=== PATIENT | male | born 1955 | race Caucasian/White ===

== ENCOUNTER 2017-04-30 18:50 | Inpatient (IN) | payer OTHER ==
--- NOTE | ~2017-04-30 | OP ---
Record Of Operation [facility] [address] [place]. [address] NAME: AXEL SHARP : 55 STATUS : DIS IN PAT#: [id number] AGE: 61 ADM/REG DATE : 04/30/17 MR#: [id number] REPORT SERV DATE: 05/05/17 DICTATED BY: BRYCE GARCIA II DATE: 05/05/17 REPORT STATUS : Draft TRANSCRIBED BY: MODShira DATE: 05/05/17 DATE OF PROCEDURE: 04/30/2017 CONCRETE CURER: Gregory. PREOPERATIVE DIAGNOSIS: Symptomatic left carotid stenosis. POSTOPERATIVE DIAGNOSIS: Symptomatic left carotid stenosis. PROCEDURES: 1. Left carotid endarterectomy with bovine patch angioplasty. 2. Completion intraoperative duplex ultrasound. ANESTHESIA: General. IV FLUIDS: 900 mL. ESTIMATED BLOOD LOSS: 100 mL. SPECIMENS: Carotid plaque. DRAINS: 15-Faroese Homero. DETAILS OF PROCEDURE: The patient was taken to the operating room, placed in supine position on the table. General anesthesia was achieved. Protective padding and a shoulder roll was placed. We then prepped and draped in a sterile fashion. I made an incision along the anterior border of the sternocleidomastoid. The platysma was divided with electrocautery. The facial vein was ligated with 2-0 silk. The carotid sheath was opened and vessel loops were placed around the common, internal, and external carotid arteries. Systemic heparin was given. The hypoglossal and vagus nerves were identified and preserved throughout the case. Arteriotomy was then made in the common carotid and extended through the bifurcation onto the internal carotid. A shunt was placed without difficulty. There was severe hemorrhagic plaque present within the internal carotid. Stenosis was more than 80%. Using a [place] elevator, we removed all visible plaque down to a smooth endarterectomy surface. 7- 0 tacking sutures were placed distally. We then closed the vessel using a bovine pericardial patch and a running 6-0 Prolene. Prior to complete closure, we flushed and removed the shunt. Intraoperative ultrasound demonstrates a widely patent endarterectomy site. There was no thrombus, filling defect, or debris noted. There was a normal carotid waveform noted. We then thoroughly irrigated, ensured hemostasis, placed a 15-Faroese Homero drain and then closed with an interrupted 3-0 Vicryl in the platysma. We closed the skin with Monocryl. At the end of procedure, he was stable. He was neurologically intact. He awoke from general anesthesia and transported to the recovery room in good condition. LS/MODL Record Of Operation [facility] [address] [place] [address] NAME: AXEL SHARP : 55 STATUS : DIS IN PAT#: [id number] AGE: 61 ADM/REG DATE : 04/30/17 MR#: [id number] REPORT SERV DATE: 05/05/17 DICTATED BY: BRYCE GARCIA II DATE: 05/05/17 REPORT STATUS : Draft TRANSCRIBED BY: MODShira DATE: 05/05/17 Bryce Garcia II, M.D. / [id number] CC: Kate Corral II, M.D.
[2017-04-30 14:29] LABS: BASOPHILS 0.8 %; BASOPHILS ABSOLUTE 0.07 10/3/uL (0.0-0.16); EOSINOPHILS 4.7 %; EOSINOPHILS ABSOLUTE 0.43 10/3/uL (0.0-0.53); HEMATOCRIT 43.4 % (40.0-51.0); HEMOGLOBIN 15.2 g/dL (13.6-17.8); IMMATURE GRANULOCYTES 0.2 %; IMMATURE GRANULOCYTES ABSOLUTE 0.02 10/3/uL (0.0-0.11); LYMPHOCYTES 32.5 %; LYMPHOCYTES ABSOLUTE 2.98 10/3/uL (0.67-4.30); MANUAL DIFF NO %; MEAN CORPUSCULAR HEMOGLOB 30.6 pg (26.0-34.0); MEAN CORPUSCULAR VOLUME 87.5 fL (80-100); MEAN PLATELET VOLUME 9.5 fL (9.2-13.0); MONOCYTES 8.8 %; MONOCYTES ABSOLUTE 0.81 10/3/uL (0.21-1.20); NEUTROPHILS ABSOLUTE 4.87 10/3/uL (2.02-8.40); PLATELET COUNT 304 10/3/uL (150-400); RBC DISTRIBUTION WIDTH 13.5 % (12.0-16.0); RED CELL COUNT 4.96 10/6/uL (4.7-6.1); WHITE BLOOD CELLS 9.2 10/3/uL (4.5-10.5)
[2017-04-30 14:46] LABS: ALBUMIN 3.6 G/DL (3.5-5.0); ALKALINE PHOSPHATASE 52 U/L (45-117); BUN (BLOOD UREA NITROGEN) 15 MG/DL (6-23); CHLORIDE, SERUM 111 MMOL/L (96-112); CO2 (CARBON DIOXIDE) 24 MMOL/L (24-34); CREATININE 1.24 MG/DL (0.70-1.30); DIRECT BILIRUBIN < 0.1 MG/DL (0.0-0.4); GFR AFRICAN AMERICAN 72 ML/MIN (>=60); GFR NON AFRICAN AMERICAN 62 ML/MIN (>=60); GLUCOSE, SERUM 89 MG/DL (60-99); INDIRECT BILIRUBIN(NOT ORDER) 0.3 MG/DL (0.1-0.9); SGOT(AST) 11 U/L (5-40); SGPT(ALT) 19 U/L (5-65); SODIUM, SERUM 142 MMOL/L (135-148); TOTAL BILIRUBIN 0.4 MG/DL (0-1.2); TOTAL PROTEIN 6.9 G/DL (6.0-8.5)
[~2017-04-30 18:50] MED LIST: ABILIFY10 PO; ACET500CAP PO; ANTA250 PO; ASA5GR PO; ASAB PO; ATV.5 PO; BEN25 PO; CIP5 PO; COQ-10 PO; COREG12 PO; DURAFLEX PO; EFFEXOR XR150 MG PO; FISH OIL1200 MG PO; K-TABS10 MEQ PO; KEPPRA750 MG PO; L20 PO; LEVOTHYROXIN175 MCG PO; LIPITOR80 MG PO; LOP50 PO; MELATONIN5 M1 PO; MULTIVITAMI1 PO; NEUR400 PO; NIASPAN500 PO; NORV5 PO; PLAVIX PO; PRAVACHOL40 MG PO; TRAZ50 PO; VITE PO; ZESTRIL20 MG PO; ZYBAN PO; ZYRTEC ALLGY10 MG PO
[2017-04-30 18:53] LABS: HEMATOCRIT 39.4 % (40.0-51.0); HEMOGLOBIN 13.6 g/dL (13.6-17.8)
[2017-05-01 03:54] LABS: BASOPHILS 0.2 %; BASOPHILS ABSOLUTE 0.03 10/3/uL (0.0-0.16); EOSINOPHILS 0.1 %; EOSINOPHILS ABSOLUTE 0.01 10/3/uL (0.0-0.53); HEMATOCRIT 42.6 % (40.0-51.0); HEMOGLOBIN 15.1 g/dL (13.6-17.8); IMMATURE GRANULOCYTES 0.3 %; IMMATURE GRANULOCYTES ABSOLUTE 0.05 10/3/uL (0.0-0.11); LYMPHOCYTES 11.4 %; LYMPHOCYTES ABSOLUTE 2.05 10/3/uL (0.67-4.30); MEAN CORPUS HGB CONC 35.4 g/dL (32.0-36.0); MEAN CORPUSCULAR HEMOGLOB 30.9 pg (26.0-34.0); MEAN CORPUSCULAR VOLUME 87.1 fL (80-100); MEAN PLATELET VOLUME 9.7 fL (9.2-13.0); MONOCYTES 7.6 %; MONOCYTES ABSOLUTE 1.37 10/3/uL (0.21-1.20); NEUTROPHILS 80.4 %; NEUTROPHILS ABSOLUTE 14.55 10/3/uL (2.02-8.40); PLATELET COUNT 363 10/3/uL (150-400); RED CELL COUNT 4.89 10/6/uL (4.7-6.1)
[2017-05-01 04:02] LABS: MANUAL DIFF NO %; WHITE BLOOD CELLS 18.1 10/3/uL (4.5-10.5)
== END 2017-05-02 11:30 | disposition home or self-care (01) | DRG 39 ==
LOC: SDC/OF 18:50 → CVICU 19:53
PROVIDERS: Surgery
PROC: 03CL0Z6 (ICD-10-PCS; principal; 2017-04-30 15:45)
DX: I65.22 Occlusion and stenosis of left carotid artery (principal); I10 Essential (primary) hypertension; Z79.899 Other long term (current) drug therapy; Z79.82 Long term (current) use of aspirin; Z86.73 Personal history of transient ischemic attack (TIA), and cerebral infarction without residual deficits; I25.2 Old myocardial infarction; M19.90 Unspecified osteoarthritis, unspecified site; Z98.890 Other specified postprocedural states; Z88.8 Allergy status to other drugs, medicaments and biological substances; Z79.02 Long term (current) use of antithrombotics/antiplatelets
CPT/HCPCS: 80048; 80076; 81001; 85014; 85018; 85025; 87641; 88304; 88311; 93005; A9270-GY; C1768; J0690; J2250; J2370; J2405; J2710; J2720; J3010